=== PATIENT | male | born 1955 | race Caucasian/White ===

== ENCOUNTER 2021-03-10 23:38 | Emergency (ER) | payer BC ==
[2021-03-11] MEDS ORDERED: Acetaminophen/oxyCODONE 325-10 MG Tab PO ONE (00:42)
[2021-03-11] MEDS ORDERED: Penicillin V Potassium 500 MG Tab PO STA (00:43)
--- NOTE | 2021-03-11 00:46 | EDM.PDOC ---
ED HPI GENERAL MEDICAL PROBLEM - General Chief Complaint: ENT Problem Stated Complaint: TOOTHACHE Time Seen by Provider: 03/11/21 00:30 - History of Present Illness INITIAL COMMENTS - FREE TEXT/NARRATIVE: History of present illness: [] Patient has a tooth ache in the right lower jaw. Patient's tooth aches gone on 2 or 3 days. He planned to see dentist but he had basal cell carcinoma treatment on the left side of the face and that delayed his dental care. He has no trismus psilocin more trouble breathing or speaking. He has some swelling about the face associated with severe pain is worse when he has cold or hot liquids or air passing over the tooth where he has a cavity in the lower jaw. Review of systems: As per history of present illness and below otherwise all systems reviewed and negative. Past medical history: As per history of present illness and as reviewed below otherwise noncontributory. Surgical history: As per history of present illness and as reviewed below otherwise noncontributory. Social history: No reported history of drug or alcohol abuse. Family history: As per history of present illness and as reviewed below otherwise noncontributory. Physical exam: Constitutional - well developed, well-nourished and in no acute distress HEENT -carious tooth #30. Swelling in the face in the same area. No trismus ptyalism and normal voice. Normocephalic, no evidence of trauma - external nose and mouth normal - no mass in neck and no JVD - mucosae moist EYES - full EOM, PERRL, no icterus - no evidence of inflammation, injection, or drainage Respiratory - no respiratory distress, equal bilateral expansion Cardiovascular - Regular Rhythm with S1 and S2 appreciated and no murmur, gallop or rub. Musculoskeletal no gross deformity of long bones or joints - no tenderness, swelling or edema Neurologic - Alert and oriented times four - CN II-XII grossly intact - motor sensory and coordination symmetrically normal Psychiatric - appropriate mood and affect with normal thought content Hematologic - No petechiae or purpura - mucosa appropriate color and sclera not pale - normal nail bed color and refill Integument - no rash or evidence of trauma - normal turgor Diagnostics: [] Therapeutics: [] Impression: [] Plan: [] Definitive disposition and diagnosis as appropriate pending reevaluation and review of above. Right Jaw Pain Score (Numeric/FACES): 8 - Related Data Allergies Allergy/AdvReac Type Severity Reaction Status Date / Time No Known Allergies Allergy Verified 03/11/21 00:22 Home Meds: Home Meds Acetaminophen/oxyCODONE [Percocet 325-10 MG] 1 tab PO Q4H PRN #12 tab 03/11/21 [Rx] Penicillin V Potassium [Veetids] 500 mg PO Q12HR 7 Days #14 tab 03/11/21 [Rx] Past Medical History - Past Health History Medical/Surgical History: Denies Medical/Surgical History Oncologic (Cancer) History: Reports: Squamous Cell Carcinoma Dermatologic History: Reports: Other (See Below) Other Dermatologic History: squamous cell carcinoma - Past Surgical History Dermatological Surgical History: Reports: Other (See Below) Social & Family History - Family History Family Medical History: No Pertinent Family History - Tobacco Use Tobacco Use Status *Q: Never Tobacco User - Caffeine Use Caffeine Use: Reports: Coffee - Recreational Drug Use Recreational Drug Use: No ED ROS GENERAL - Review of Systems Review Of Systems: Comprehensive ROS is negative, except as noted in HPI. ED EXAM, GENERAL - Physical Exam Exam: See Below Free Text/Narrative:: My physical exam is in the HPI Course - Vital Signs Last Recorded V/S: Last Vital Signs Temp 36.8 C 03/11/21 00:17 Pulse 64 03/11/21 00:17 Resp 18 03/11/21 00:17 BP 189/100 H 03/11/21 00:17 Pulse Ox 98 03/11/21 00:17 Departure - Departure Time of Disposition: 00:45 Disposition: Home, Self-Care 01 Condition: Good Clinical Impression: Dentalgia, Caries - Discharge Information Instructions: Dental Pain, Dental Caries, Adult Referrals: PCP,None [Primary Care Provider] - Additional Instructions: See a dentist at your earliest convenience [facility] [address] [place] [id number] [address] The following information is given to patients seen in the emergency department who are being discharged to home. This information is to outline your options for follow-up care. We provide all patients seen in our emergency department with a follow-up referral. The need for follow-up, as well as the timing and circumstances, are variable depending upon the specifics of your emergency department visit. If you don't have a primary care physician on staff, we will provide you with a referral. We always advise you to contact your personal physician following an emergency department visit to inform them of the circumstance of the visit and for follow-up with them and/or the need for any referrals to a consulting specialist. The emergency department will also refer you to a specialist when appropriate. This referral assures that you have the opportunity for follow-up care with a specialist. All of these measure are taken in an effort to provide you with optimal care, which includes your follow-up. Under all circumstances we always encourage you to contact your private physician who remains a resource for coordinating your care. When calling for follow-up care, please make the office aware that this follow-up is from your recent emergency room visit. If for any reason you are refused follow-up, please contact the [facility] Emergency Department at and asked to speak to the emergency department charge nurse. Sepsis Event Note (ED) - Focused Exam Vital Signs: Vital Signs Temp Pulse Resp BP Pulse Ox 03/11/21 00:17 36.8 C 64 18 189/100 H 98
== END 2021-03-11 01:00 | disposition home or self-care (01) ==
LOC: MW.ED 23:38
DX: K02.9 Dental caries, unspecified (principal)
CPT/HCPCS: 99282; A9270